=== PATIENT | female | born 1980 | race Caucasian/White ===

== ENCOUNTER 2022-09-21 07:10 | Emergency (ER) | payer BC, SELFPAY ==
[2022-09-21 07:21] VITALS: BP 132/88; PULSE 78; RESP 20; TEMP 36.8; O2SAT 98
--- NOTE | 2022-09-21 07:36 | CRLHL7_ITS ---
For Patients: As a result of the Cures Act, medical imaging exams and procedure reports are released immediately into your electronic medical record. You may view this report before your referring provider. If you have questions, please contact your health care provider. Indication: Pain, rolled ankle last night Comparison: None available. Technique: AP, lateral, and oblique views right foot were obtained. Findings: There is no displaced fracture or dislocation. There is mild prominence of the interspace between the bases of the 2nd and 3rd metatarsals which could represent ligamentous injury of the midfoot. There is mild dorsal soft tissue swelling. Impression: Mild prominence of the interspace between the 2nd and 3rd metatarsals seen best on the oblique view. Finding could represent minimal ligamentous strain. Correlate with history of clinical symptoms and consider MR for improved characterization of soft tissue structures. No displaced fracture. Mild dorsal soft tissue swelling. Dictated by Caleb Gaitan MD @ 09/21/2022 8:24:07 AM (Electronically Signed)
--- NOTE | 2022-09-21 07:36 | CRLHL7_ITS ---
For Patients: As a result of the Cures Act, medical imaging exams and procedure reports are released immediately into your electronic medical record. You may view this report before your referring provider. If you have questions, please contact your health care provider. Indication: Rolled right ankle last night Comparison: None available. Technique: AP, lateral, and oblique views right foot were obtained. Findings: There is no displaced fracture or dislocation. The joint spaces are grossly preserved. There is mild dorsal soft tissue swelling. Impression: Mild dorsal soft tissue swelling without evidence of displaced fracture. Dictated by Caleb Gaitan MD @ 09/21/2022 8:11:38 AM (Electronically Signed)
--- NOTE | 2022-09-21 07:59 | ED.GENADULT ---
HPI - General Adult General Date Seen: 09/21/22 Chief complaint: Extremity Pain/Injury, Lower Stated complaint: rolled ankle Time Seen by Provider: 09/21/22 07:34 Source: patient Mode of arrival: ambulatory Limitations: no limitations History of Present Illness HPI narrative: Patient is a 42-year-old woman who presents for evaluation of her right ankle and foot. She rolled her ankle last night, continues to have pain today and so presents for evaluation. There is a little bit of swelling noted in the ankle. She primarily complains of pain in the lateral foot at this time. She is ambulatory although she says she is limping. Denies other injuries or complaints. Has some tingling in her lateral foot. No numbness or loss of function. Related Data Previous Rx's Medication Instructions Recorded risankizumab-rzaa 150 mg/mL 150 mg subcut Q12W #1 mL 03/30/22 subcutaneous pen injector (Skyrizi) Allergies Allergy/AdvReac Type Severity Reaction Status Date / Time NKA Allergy Unknown Uncoded 09/21/22 07:27 Review of Systems Status of ROS: Reports: 6 or more systems reviewed and unremarkable except as noted in History and below [facility] Medical History Psoriasis Psoriasis and similar disorder Social History Smoking Status: Never smoker Do you use any of these nicotine containing products: None How often do you have a drink containing alcohol: never How often do you have six or more drinks on one occasion: Never AUDIT-C Alcohol total score: 0 Non-prescribed substance use: denies use service: No Exam Narrative: Exam Narrative: Vital signs reviewed In general, an alert, nontoxic woman. Extremities: Examination of the right lower extremity shows mild swelling in the ankle, no bruising, deformity, erythema or warmth. Pulses intact. Distal CMS is normal. She has tenderness primarily over the lateral foot over the 4th metatarsal. She does not have any tenderness over the 5th metatarsal. She has minimal tenderness over the lateral malleolus. No tenderness over the medial malleolus or Achilles. No tenderness over the proximal lower leg. Skin: Warm and dry, well perfused. No abrasions or lacerations. Const: Vital Signs, click to edit/add: Vital Signs - 24 hr 09/21/22 07:21 Temperature 98.3 F Pulse Rate [Left P ulse Oximeter] 78 Respiratory Rate 20 Blood Pressure [Le ft Upper Arm] 132/88 Pulse Oximetry 98 Oxygen Delivery Me thod Room Air Documenting provider has reviewed patient's vital signs: yes Course Course Hospital Course: Patient had x-rays of her right foot and right ankle, which by my review did not show any evidence of acute bony injury. Final radiology read a both x-rays is negative. Will go ahead and try a Gel splint verses a hard sole shoe here and see which 1 is more helpful for her. Otherwise, ice, elevation, ibuprofen or Tylenol as needed. Discussed that x-rays are negative but are not perfect, she is not improving in all over the next week or so should be seen again for recheck. Vital Signs Vital signs: Initial Vital Signs Temperature 98.3 F 09/21/22 07:21 Temperature Source Temporal Artery Scan 09/21/22 07:21 Pulse Rate 78 09/21/22 07:21 Pulse Rhythm 09/21/22 07:21 Pulse Strength 0+ Absent 09/21/22 07:21 Respiratory Rate 20 09/21/22 07:21 Blood Pressure 132/88 09/21/22 07:21 Blood Pressure Mean 102 09/21/22 07:21 Blood Pressure Position Supine 09/21/22 07:21 Pulse Oximetry 98 09/21/22 07:21 Oxygen Delivery Method 09/21/22 07:21 Vital Signs Temperature 98.3 F 09/21/22 07:21 Pulse Rate 78 09/21/22 07:21 Respiratory Rate 20 09/21/22 07:21 Blood Pressure 132/88 09/21/22 07:21 Pulse Oximetry 98 09/21/22 07:21 Oxygen Delivery Method 09/21/22 07:21 Temperature 98.3 F 09/21/22 07:21 Pulse Rate 78 09/21/22 07:21 Respiratory Rate 20 09/21/22 07:21 Blood Pressure 132/88 09/21/22 07:21 Pulse Oximetry 98 09/21/22 07:21 Oxygen Delivery Method 09/21/22 07:21 Discharge Plan Discharge Clinical Impression: Right foot sprain Patient Disposition: Home, Self-Care Condition: Stable Instructions: Foot Sprain (ED) Additional Instructions: Splint as needed for the next week. Ibuprofen or Tylenol, ice, elevation. Recheck if not improving over the next week or so. Prescriptions: No Action Skyrizi 150 mg/mL pen injector 150 mg subcut Q12W Qty: 1 0RF Follow Up/Referrals: Provider,Not a Local [Primary Care Provider] - Stand Alone Forms: Snap Trendsth Info Instructions
== END 2022-09-21 08:40 | disposition home or self-care (01) ==
PROVIDERS: Emergency Provider Emergency Medicine
DX: S93.401A Sprain of unspecified ligament of right ankle, initial encounter (principal)
CPT/HCPCS: 73610; 73630; 99284

== ENCOUNTER 2025-02-12 21:55 | Emergency (ER) | payer BC, SELFPAY ==
--- OUTSIDE RECORDS SUMMARY | 2025-02-12 21:57 | XMS_ITS | Continuity of Care Document ---
Author Organization [place] [facility] Address [address] [place] [address] Assessment Encounter Date Assessment Date Assessment LastModified by Organization Details LastModified Time 12/31/2024 12/31/2024 ASSESSMENT: Patient is a good candidate for conservative care and the prognosis is for a favorable outcome that achieves the patients' goals. We discussed etiology, activity modifications, home care, and other treatment options. Initially, it is recommended that the patient receive in-office treatment 1 times per week for 8 weeks at which time a re-evaluation will be performed to determine an appropriate change in plan. Initially, treatment will focus on joint manipulation to restore range of motion and reduce pain. We will slowly progress to therapeutic exercises and activities to improve function, strength, and stability may also be used as warranted. If the patient is not responding as expected, more invasive procedures will be discussed along with a referral. All considerations above were discussed with the patient and questions answered to satisfaction. If the patient should have any additional questions, or should the condition evolve or worsen, the patient should not hesitate to contact our office. [email or web address] Not available 12/31/2024 19:42:12 Plan of Treatment Reminders Order Date Submit Date Provider Last Modified By Organization Details Last Modified Time Details Appointments None record ed. Lab None record ed. Referral None record ed. Procedures None record ed. Surgeries None record ed. Imaging None record ed. Medication Orders None record ed. Patient TargetsNo targets recorded. Patient InstructionsNo instructions recorded. Reason for Referral None Reported. Problems Name Problem SNOMED Code Status Onset Date Resolution Date Notes Provider Name and Address Organization Details Recorded Time Neck pain 44429578 Active 2023 Not Available [facility] 4 10:21:41 Cervical radiculopa thy 93868131 Active 2023 Avery Hidalgo [place] [address], [place], [address] , [place] [facility] 4 00:13:19 Degenerati on of cervical interverte bral disc 86639603 Active 2023 Avery Hidalgo [place] [address], [place], [address] , [place] [facility] 4 00:13:19 Thoracic segmental dysfunctio n 862141942 Active 2023 Avery Hidalgo [place] [address], [place], [address] , [place] [facility] 4 00:13:19 Cervical segmental dysfunctio n 370307419 Active 2023 Avery Hidalgo [place] [address], [place], [address] , [place] [facility] 4 00:13:19 Muscle spasm of cervical muscle of neck 169286708087 Active 2023 Avery Hidalgo [place] [address], [place], [address] , [place] [facility] 4 00:13:19 Myofascial pain syndrome of neck 576025906 Active 2024 Avery Rocky [place] [address], [place], [address] , [place] [facility] 5 18:00:43 Somatic dysfunctio n of pelvic region 224670967 Active 2024 Avery Rocky [place] [address], [place], [address] , [place] [facility] 5 18:00:52 Lumbar segmental dysfunctio n 012130926 Active 2024 Alexandre Harris, [place] [address], [place], [address] , [place] [facility] 5 18:51:57 Lesion of lumbar spine 065430358 Active 2024 Alexandre Harris [place] [address], [place], [address] , [facility] 18:51:57 Somatic dysfunctio n of sacral spine 821133771 Active 2024 Alexandre Harris [place] [address], [place], [address] , [facility] 19:40:35 Low back pain 680608483 Active 2024 Alexandre Harris [place] [address], [place], [address] , [facility] 19:40:35 Somatic dysfunctio n of lower limb 734771573 Active 2024 Alexandre Harris [place] [address], [place], [address] , [facility] 19:42:12 Problem Notes None recorded. Procedures Surgical History Date Name Laterality Status Provider Name and Address Organization Details Recorded Time 01/31/20 25 98682: Spinal manipulation, 3 to 4 regions completed Avery Santiago DC [address], [place], [address], [facility] 01/30/2025 16:31:07 01/27/20 25 39400: Spinal manipulation, 3 to 4 regions completed Avery Santiago DC [address] [place] [address], [place], [address], [facility] 01/26/2025 18:04:12 01/01/20 25 41395: Spinal manipulation, 3 to 4 regions completed Alexandre Maxwellcompa Harris DC [address], [place], [address], [facility] 12/31/2024 19:42:30 12/27/19 25 59050: Spinal manipulation, 3 to 4 regions completed Avery Santiago DC [address], [place], [address], [facility] 12/26/2024 18:08:40 12/24/19 25 92685: Spinal manipulation, 3 to 4 regions completed Alexandre Harris DC [address], [place], [address], [facility] 12/23/2024 18:46:26 12/13/19 25 89225: Spinal manipulation, 3 to 4 regions completed Alexandre Harris DC [address], [place], [address], [facility] 12/16/2024 18:50:08 11/22/19 25 32494: Spinal manipulation, 3 to 4 regions completed Avery Santiago DC [address], [place], [address], [facility] 11/21/2024 22:00:11 10/24/19 25 08196: Spinal manipulation, 3 to 4 regions completed Alexandre Harris DC [address], [place], [address], [facility] 10/23/2024 19:41:42 10/24/19 25 71514: Non-spinal manipulation completed Alexandre Harris DC [address], [place], [address], [facility] 10/23/2024 19:41:54 09/27/19 25 99442: Spinal manipulation, 3 to 4 regions completed Avery Santiago DC [address], [place], [address], [facility] 09/26/2024 19:17:52 08/11/19 25 24086: Spinal manipulation, 3 to 4 regions completed Alexandre Harris DC [address], [place], [address], [facility] 08/11/2024 18:53:02 08/01/19 25 25454: Spinal manipulation, 3 to 4 regions completed Avery Santiago DC [address], [place], [address], [facility] 08/01/2024 15:40:14 07/25/19 00254: Spinal manipulation, 3 to 4 regions completed Avery Hidalgo [place], [place] [address], [place], [address], [facility] 07/25/2024 17:58:55 06/27/20 66127: Spinal manipulation, 3 to 4 regions completed Avery Hidalgo Colleen[place], [place] [address], [place], [address], [facility] 06/28/2024 00:16:24 06/27/20 99901: Mechanical Traction completed Avery Hidalgo Col[place], [place] [address], [place], [address], [facility] 06/28/2024 00:13:17 06/27/20 86834: New patient E/M completed Avery Hidalgo Col[place], [place] [address], [place], [address], [facility] 06/28/2024 00:13:17 06/27/20 24 01211: Established patient E/M completed Avery Hidalgo Colleen[place], [place] [address], [place], [address], [facility] 06/28/2024 00:13:17 06/27/20 53901: Therapeutic activities (1:1) completed Avery Hidalgo Brennan, [place] [address], [place], [address], [facility] 06/28/2024 00:13:17 06/27/20 46993: Therapeutic Exercise completed Avery Rocky Brennan, [place] [address], [place], [address], [facility] 06/28/2024 00:13:17 06/27/20 24 78201: Massage completed Avery Rocky Colleen[place], [place] [address], [place], [address], [facility] 06/28/2024 00:13:17 06/27/20 77200: Manual Therapy completed Averyguillermina Maciasm, [place] [address], [place], [address], [facility] 06/28/2024 00:13:17 06/27/20 24 99292: Electrical Stimulation; Attended completed Avery Santiago DC [address], [place], [address], [facility] 06/28/2024 00:13:17 06/27/20 24 55318: Spinal manipulation, 1 to 2 regions completed Avery Santiago DC [address], [place], [address], [facility] 06/28/2024 00:13:17 Imaging Results None recorded. Procedure Notes None recorded. Medical Equipment None Reported. Medications Name Sig Start Date Stop Date Status Note LastModified by Organization Details LastModified Time amoxicillin 500 mg tablet TAKE 1 TABLET BY MOUTH THREE TIMES DAILY active Not Available Not Available No t Available Vitals None Recorded Social History None recorded. Functional Status None recorded. Mental Status None recorded. Family History Nothing Reported. Medical History No medical history recorded. Gynecological HistoryNo gynecological history recorded. Obstetrics History GPAL:G 0 P 0 0 0 0 Past Encounters Encounter ID Performer Location Encounter Start Date Encounter Closed Date Diagnosis/Indication Diagnosis SNOMED-CT Code Diagnosis ICD10 Code Diagnosis Note [id number] Avery Santiago DC [facility] [address] [place] [address] 12/12/2024 16:29:10 12/23/2024 17:15:26 Lesion of lumbar spine 369281405 M99.01 Neck pain 79770067 M54.2 Thoracic s egmental dysfunction 576595854 M99.02 Lumbar seg mental dysfunction 358497768 M99.03 Cervical s egmental dysfunction 762083619 M99.01 [id number] Alexandre Harris DC [facility] [address] [place] [address] 12/23/2024 17:49:34 12/25/2024 10:48:39 Lesion of lumbar spine 997738959 M99.01 Neck pain 60941420 M54.2 Thoracic s egmental dysfunction 387190069 M99.02 Lumbar seg mental dysfunction 680647962 M99.03 Cervical s egmental dysfunction 648167894 M99.01 [id number] Avery Rocky ERIK Santiago [facility] [place] [address] [facility] [place] [address] 12/26/2024 17:45:35 12/26/2024 18:14:04 Lesion of lumbar spine 925179931 M99.01 Neck pain 11357895 M54.2 Thoracic s egmental dysfunction 909363359 M99.02 Lumbar seg mental dysfunction 898610430 M99.03 Cervical s egmental dysfunction 114075726 M99.01 [id number] [facility] [place] [address] [facility] [place] [address] 12/31/2024 18:14:48 01/06/2025 17:32:07 Lesion of lumbar spine 971307167 M99.01 Neck pain 52848126 M54.2 Thoracic s egmental dysfunction 421634132 M99.02 Lumbar seg mental dysfunction 306928463 M99.03 Cervical s egmental dysfunction 802602924 M99.01 Health Concerns Section Related Observation LastModified by Organization Detai ls LastModified Time None Recorded Concern Status LastModified by Organization Details LastModified Time None Recorded Payers Encounter Date Sequence Insurance Name Policy Number Policy Barrett Covered Member ID Barrett Member ID Guarantor Name 12/31/2024 1 [place] Chris Medina [id number] Lynn Medina Notes Date Note Type Note Provider Name and Address Organization Details Recorded Time 12/31/2024 text/html HPI - Cervical SpineReported bypatient.Location: left Quality:aching Severity:moderate Duration:2 weeks Timing:gradual Alleviating Factors:ice Aggravating Factors:sitting Associated Symptoms:no numbness/tingling Alexandre Harris DC [address], [place], [address], [facility] 12/31/2024 19:43:03 OBGyn Episode No OBEpisode recorded.
--- OUTSIDE RECORDS SUMMARY | 2025-02-12 21:57 | XMS_ITS | Patient Health Record ---
Author Organization [facility] Address [address] [place] [address] Support Name Relationship Address Phone Chris Medina [place] [address] Jacquie Medina Guarantor Unknown [phone] Reason For Referral No Information Immunizations Vaccine Route Administration Date Status Comme nts Influenza (whole) IM Intramuscular 04/16/2020 Administered Plan Of Treatment No Information Insurance Providers Payer Name Payer Address Payer Phone Subscriber Number Group Number Insured Name Patient Relationship to Insured Coverage Start Date Coverage End Date [facility] () [address], [address] [place] [address] Jacquie Medina Self - patient is the insured [facility] [id number] [address] [place], [place] [id number] Jacquie Medina Self - patient is the insured Medical (General) History Surgical History Surgery Date(Month/Year) 02/24/02 09/22/04 Hospitalization History Reason Date(Month/Year) 02/24/02 09/22/04
--- OUTSIDE RECORDS SUMMARY | 2025-02-12 21:57 | XMS_ITS | Continuity of Care Document ---
Author Organization [place] [facility] [place] [facility] Address [address] [facility] [address] [place] [address] Assessment Encounter Date Assessment Date Assessment LastModified by Organization Details LastModified Time 01/26/2025 01/26/2025 ASSESSMENT: Patient is a good candidate for [...] should not hesitate to contact our office. ecram Not available 01/26/2025 18:04:12 Plan of Treatment Reminders Order Date Submit [...] Address Organization Details Recorded Time Neck pain 21007398 Active 2023 Not Available [facility] 4 10:21:41 Cervical radiculopa thy 56199070 Active 2023 Avery Hidalgo Colleenrenee ERIK [address] [facility], [place], [address] , [facility] 4 00:13:19 Degenerati on of cervical interverte bral disc 63408079 Active 2023 Avery Hidalgo [place] [address] [facility], [place], [address] , [place] [facility] 4 00:13:19 Thoracic segmental dysfunctio n 676314040 Active 2023 Avery Hidalgo [place] [address] [facility], [place], [address] , [place] [facility] 4 00:13:19 Cervical segmental dysfunctio n 938795270 Active 2023 Avery Hidalgo [place] [address] [facility], [place], [address] , [place] [facility] 4 00:13:19 Muscle spasm of cervical muscle of neck 621516944115 Active 2023 Avery Hidalgo [place] [address] [facility], [place], [address] , [place] [facility] 4 00:13:19 Myofascial pain syndrome of neck 011566245 Active 2024 Avery Hidalgo ColleenreneeERIK [address] [facility], [place], [address] , [place] [facility] 5 18:00:43 Somatic dysfunctio n of pelvic region 205541076 Active 2024 Avery Rocky [place] [address] [facility], [place], [address] , [place] [facility] 5 18:00:52 Lumbar segmental dysfunctio n 044306831 Active 2024 Alexandre Harris, [place] [address] [facility], [place], [address] , [place] [facility] 5 18:51:57 Lesion of lumbar spine 442610691 Active 2024 Alexandre Harris [place] [address] [facility], [place], [address] , [facility] 18:51:57 Somatic dysfunctio n of sacral spine 752301245 Active 2024 Alexandre Harris [place] [address] [facility], [place], [address] , [facility] 19:40:35 Low back pain 647059331 Active 2024 Alexandre Harris [place] [address] [facility], [place], [address] , [facility] 19:40:35 Somatic dysfunctio n of lower limb 040821095 Active 2024 [facility] Stepan Harris [place] [address] [facility], [place], [address] , [facility] 19:42:12 Problem Notes None recorded. Procedures Surgical History Date Name Laterality Status Provider Name and Address Organization Details Recorded Time 01/31/20 62882: Spinal manipulation, 3 to 4 regions completed Avery Santiago DC [address] [place] [address], [place], [address], [facility] 01/30/2025 16:31:07 01/27/20 25 11550: Spinal manipulation, 3 to 4 regions completed Avery Santiago DC [address] [place] [address], [place], [address], [facility] 01/26/2025 18:04:12 01/01/20 25 46120: Spinal manipulation, 3 to 4 regions completed Alexandre Ying Kimberly [place] [address] [facility], [place], [address], [facility] 12/31/2024 19:42:30 12/27/19 25 35024: Spinal manipulation, 3 to 4 regions completed Avery Santiago DC [address] [facility], [place], [address], [facility] 12/26/2024 18:08:40 12/24/19 25 07281: Spinal manipulation, 3 to 4 regions completed Alexandre Harris DC [address] [facility], [place], [address], [facility] 12/23/2024 18:46:26 12/13/19 25 81911: Spinal manipulation, 3 to 4 regions completed Alexandre Harris DC [address] [facility], [place], [address], [facility] 12/16/2024 18:50:08 11/22/19 79086: Spinal manipulation, 3 to 4 regions completed Avery Santiago DC [address] [facility], [place], [address], [facility] 11/21/2024 22:00:11 10/24/19 83482: Spinal manipulation, 3 to 4 regions completed Alexandre Harris DC [address] [facility], [place], [address], [facility] 10/23/2024 19:41:42 10/24/19 25 48391: Non-spinal manipulation completed Alexandre Harris DC [address] [facility], [place], [address], [facility] 10/23/2024 19:41:54 09/27/19 25 30957: Spinal manipulation, 3 to 4 regions completed Avery Santiago DC [address] [facility], [place], [address], [facility] 09/26/2024 19:17:52 08/11/19 25 05244: Spinal manipulation, 3 to 4 regions completed Alexandre Harris DC [address] [facility], [place], [address], [facility] 08/11/2024 18:53:02 08/01/19 25 63468: Spinal manipulation, 3 to 4 regions completed Avery Santiago DC [address] [facility], [place], [address], [facility] 08/01/2024 15:40:14 07/25/19 98754: Spinal manipulation, 3 to 4 regions completed Avery Maciasm, DC [address] [facility], [place], [address], [facility] 07/25/2024 17:58:55 06/27/20 65025: Spinal manipulation, 3 to 4 regions completed Averyguillermina Maciasm, DC [address] [facility], [place], [address], [facility] 06/28/2024 00:16:24 06/27/20 55390: Mechanical Traction completed Averyguillermina Maciasm, DC [address] [facility], [place], [address], [facility] 06/28/2024 00:13:17 06/27/20 65643: New patient E/M completed Averyguillermina Maciasm, DC [address] [facility], [place], [address], [facility] 06/28/2024 00:13:17 06/27/20 24 16314: Established patient E/M completed Averyguillermina Santiago, DC [address] [facility], [place], [address], [facility] 06/28/2024 00:13:17 06/27/20 24 84526: Therapeutic activities (1:1) completed Averyguillermina Santiago, DC [address] [facility], [place], [address], [facility] 06/28/2024 00:13:17 06/27/20 24 20284: Therapeutic Exercise completed Avery Santiago, DC [address] [facility], [place], [address], [facility] 06/28/2024 00:13:17 06/27/20 24 23220: Massage completed Avery Santiago, DC [address] [facility], [place], [address], [facility] 06/28/2024 00:13:17 06/27/20 59274: Manual Therapy completed Avery Santiago, DC [address] [facility], [place], [address], [facility] 06/28/2024 00:13:17 06/27/20 24 35527: Electrical Stimulation; Attended completed Avery Santiago DC [address] [facility], [place], [address], [facility] 06/28/2024 00:13:17 06/27/20 24 22418: Spinal manipulation, 1 to 2 regions completed Avery Santiago DC [address] [facility], [place], [address], [facility] 06/28/2024 00:13:17 Imaging Results None recorded. Procedure [...] SNOMED-CT Code Diagnosis ICD10 Code Diagnosis Note [id number] Alexandre Stepan Harris DC [facility] [address] [place] [address] 12/31/2024 18:14:48 01/06/2025 17:32:07 Lesion of lumbar spine 821123573 M99.01 Neck pain 22045055 M54.2 Thoracic s egmental dysfunction 414467590 M99.02 Lumbar seg mental dysfunction 402052539 M99.03 Cervical s egmental dysfunction 874075773 M99.01 [id number] Avery Santiago DC [facility] [address] [facility] [place] [address] 01/26/2025 17:51:56 01/28/2025 14:41:33 Lesion of lumbar spine 488517356 M99.01 Neck pain 48605532 M54.2 Thoracic s egmental dysfunction 643030555 M99.02 Lumbar seg mental dysfunction 851121615 M99.03 Cervical s egmental dysfunction 917427729 M99.01 Health Concerns Section Related Observation LastModified by Organization Detai ls LastModified Time None Recorded Concern Status LastModified by Organization Details LastModified Time None Recorded Payers Encounter Date Sequence Insurance Name Policy Number Policy Barrett Covered Member ID Barrett Member ID Guarantor Name 01/26/2025 1 [place] Chris Medina [id number] Lynn Carol Notes Date Note Type Note Provider Name and Address Organization Details Recorded Time 01/26/2025 text/html HPI - Cervical SpineReported bypatient.Location: left Quality:aching Severity:moderate Duration:2 weeks Timing:gradual Alleviating Factors:ice Aggravating Factors:sitting Associated Symptoms:no numbness/tingling Avery Santiago DC [address] [facility], [place], [address], [facility] - [facility] 01/26/2025 18:04:47 OBGyn Episode No OBEpisode recorded.
--- OUTSIDE RECORDS SUMMARY | 2025-02-12 21:57 | XMS_ITS | Continuity of Care Document ---
Author Organization [place] [facility] [place] [facility] Address [address] [facility] [address] [place] [address] Assessment Encounter Date Assessment Date Assessment LastModified by Organization Details LastModified Time 01/30/2025 01/30/2025 ASSESSMENT: Patient is a good candidate for [...] to contact our office. ecram Not available 01/30/2025 16:31:07 Plan of Treatment Reminders Order Date Submit [...] Address Organization Details Recorded Time Neck pain 71194865 Active 2023 Not Available [facility] 4 10:21:41 Cervical radiculopa thy 42873487 Active 2023 Avery Hidalgo Colleenrenee ERIK [address] [facility], [place], [address] , [facility] 4 00:13:19 Degenerati on of cervical interverte bral disc 64101269 Active 2023 Avery Hidalgo [place] [address] [facility], [place], [address] , [place] [facility] 4 00:13:19 Thoracic segmental dysfunctio n 903622967 Active 2023 Avery Hidalgo [place] [address] [facility], [place], [address] , [place] [facility] 4 00:13:19 Cervical segmental dysfunctio n 995702622 Active 2023 Avery Hidalgo [place] [address] [facility], [place], [address] , [place] [facility] 4 00:13:19 Muscle spasm of cervical muscle of neck 269295317062 Active 2023 Avery Hidalgo [place] [address] [facility], [place], [address] , [place] [facility] 4 00:13:19 Myofascial pain syndrome of neck 703070647 Active 2024 Avery Hidalgo ColleenreneeERIK [address] [facility], [place], [address] , [place] [facility] 5 18:00:43 Somatic dysfunctio n of pelvic region 539480252 Active 2024 Avery Rocky [place] [address] [facility], [place], [address] , [place] [facility] 5 18:00:52 Lumbar segmental dysfunctio n 374189397 Active 2024 Alexandre Harris, [place] [address] [facility], [place], [address] , [place] [facility] 5 18:51:57 Lesion of lumbar spine 826563943 Active 2024 Alexandre Harris [place] [address] [facility], [place], [address] , [facility] 18:51:57 Somatic dysfunctio n of sacral spine 332161279 Active 2024 Alexandre Harris [place] [address] [facility], [place], [address] , [facility] 19:40:35 Low back pain 889550824 Active 2024 Alexandre Harris [place] [address] [facility], [place], [address] , [facility] 19:40:35 Somatic dysfunctio n of lower limb 968804637 Active 2024 [facility] Stepan Harris [place] [address] [facility], [place], [address] , [facility] 19:42:12 Problem Notes None recorded. Procedures Surgical History Date Name Laterality Status Provider Name and Address Organization Details Recorded Time 01/31/20 94577: Spinal manipulation, 3 to 4 regions completed Avery Santiago DC [address] [place] [address], [place], [address], [facility] 01/30/2025 16:31:07 01/27/20 25 43155: Spinal manipulation, 3 to 4 regions completed Avery Santiago DC [address] [place] [address], [place], [address], [facility] 01/26/2025 18:04:12 01/01/20 25 11473: Spinal manipulation, 3 to 4 regions completed Alexandre Ying Kimber[place] [address] [facility], [place], [address], [facility] 12/31/2024 19:42:30 12/27/19 25 86555: Spinal manipulation, 3 to 4 regions completed Avery Santiago DC [address] [facility], [place], [address], [facility] 12/26/2024 18:08:40 12/24/19 25 89081: Spinal manipulation, 3 to 4 regions completed Alexandre Harris DC [address] [facility], [place], [address], [facility] 12/23/2024 18:46:26 12/13/19 25 11075: Spinal manipulation, 3 to 4 regions completed Alexandre Harrsi DC [address] [facility], [place], [address], [facility] 12/16/2024 18:50:08 11/22/19 68442: Spinal manipulation, 3 to 4 regions completed Avery Santiago DC [address] [facility], [place], [address], [facility] 11/21/2024 22:00:11 10/24/19 11816: Spinal manipulation, 3 to 4 regions completed Alexandre Harris DC [address] [facility], [place], [address], [facility] 10/23/2024 19:41:42 10/24/19 25 13071: Non-spinal manipulation completed Alexandre Harris DC [address] [facility], [place], [address], [facility] 10/23/2024 19:41:54 09/27/19 25 62696: Spinal manipulation, 3 to 4 regions completed Avery Santiago DC [address] [facility], [place], [address], [facility] 09/26/2024 19:17:52 08/11/19 25 15613: Spinal manipulation, 3 to 4 regions completed Alexandre Harris DC [address] [facility], [place], [address], [facility] 08/11/2024 18:53:02 08/01/19 25 78227: Spinal manipulation, 3 to 4 regions completed Avery Santiago DC [address] [facility], [place], [address], [facility] 08/01/2024 15:40:14 07/25/19 39679: Spinal manipulation, 3 to 4 regions completed Avery Maciasm, DC [address] [facility], [place], [address], [facility] 07/25/2024 17:58:55 06/27/20 23595: Spinal manipulation, 3 to 4 regions completed Averyguillermina Maciasm, DC [address] [facility], [place], [address], [facility] 06/28/2024 00:16:24 06/27/20 27620: Mechanical Traction completed Averyguillermina Maciasm, DC [address] [facility], [place], [address], [facility] 06/28/2024 00:13:17 06/27/20 24238: New patient E/M completed Averyguillermina Maciasm, DC [address] [facility], [place], [address], [facility] 06/28/2024 00:13:17 06/27/20 24 18509: Established patient E/M completed Averyguillermina Santiago, DC [address] [facility], [place], [address], [facility] 06/28/2024 00:13:17 06/27/20 24 38227: Therapeutic activities (1:1) completed Averyguillermina Santiago, DC [address] [facility], [place], [address], [facility] 06/28/2024 00:13:17 06/27/20 24 15963: Therapeutic Exercise completed Avery Santiago, DC [address] [facility], [place], [address], [facility] 06/28/2024 00:13:17 06/27/20 24 54144: Massage completed Avery Santiago, DC [address] [facility], [place], [address], [facility] 06/28/2024 00:13:17 06/27/20 13962: Manual Therapy completed Avery Santiago, DC [address] [facility], [place], [address], [facility] 06/28/2024 00:13:17 06/27/20 24 68473: Electrical Stimulation; Attended completed Avery Santiago DC [address] [facility], [place], [address], [facility] 06/28/2024 00:13:17 06/27/20 24 67941: Spinal manipulation, 1 to 2 regions completed Avery Santiago DC [address] [facility], [place], [address], [facility] 06/28/2024 00:13:17 Imaging Results None recorded. [...] SNOMED-CT Code Diagnosis ICD10 Code Diagnosis Note [id number] Alexandre Stepan Harris DC [facility] [address] [place] [address] 12/31/2024 18:14:48 01/06/2025 17:32:07 Lesion of lumbar spine 746604163 M99.01 Neck pain 67598953 M54.2 Thoracic s egmental dysfunction 753807386 M99.02 Lumbar seg mental dysfunction 134265927 M99.03 Cervical s egmental dysfunction 857966137 M99.01 [id number] Avery Santiago DC [facility] [address] [facility] [place] [address] 01/26/2025 17:51:56 01/28/2025 14:41:33 Lesion of lumbar spine 400348983 M99.01 Neck pain 79952960 M54.2 Thoracic s egmental dysfunction 728419732 M99.02 Lumbar seg mental dysfunction 988963409 M99.03 Cervical s egmental dysfunction 403736223 M99.01 [id number] Avery Santiago DC [facility] [address] [facility] [place] [address] 01/30/2025 16:29:49 01/30/2025 16:34:01 Lesion of lumbar spine 992447073 M99.01 Neck pain 70312605 M54.2 Thoracic s egmental dysfunction 836408555 M99.02 Lumbar seg mental dysfunction 612549828 M99.03 Cervical s egmental dysfunction 285425187 M99.01 Health Concerns Section Related Observation LastModified by Organization Detai ls LastModified Time None Recorded Concern Status LastModified by Organization Details LastModified Time None Recorded Payers Encounter Date Sequence Insurance Name Policy Number Policy Barrett Covered Member ID Barrett Member ID Guarantor Name 01/30/2025 1 [place] Chris Medina [id number] Lynn Medina Notes Date Note Type Note Provider Name and Address Organization Details Recorded Time 01/30/2025 text/html HPI - Cervical SpineReported bypatient.Location: left Quality:aching Severity:moderate Duration:2 weeks Timing:gradual Alleviating Factors:ice Aggravating Factors:sitting Associated Symptoms:no numbness/tingling Avery Santiago DC [address] [facility], [place], [address], [facility] - [facility] 01/30/2025 16:32:00 OBGyn Episode No OBEpisode recorded.
--- OUTSIDE RECORDS SUMMARY | 2025-02-12 21:58 | XMS_ITS | Clinical Summary ---
Author Organization [facility] Address [address] [place] [id number] Care Team Providers Care Phys Asst Name Role Phone Pcp, No Primary Care Provider Unavailabl e Allergies No known active allergies Medications Skyrizi 150 mg/mL syrg 01/17/20 22 Active acetaminophen (TYLENOL) 325 mg tabletIndication s:Abnormal uterine bleeding (AUB) Take 1-2 Tablets (325-650 mg) by mouth every 4 hours if needed for Pain. Max acetaminophen dose: 4000mg in 24 hrs. 100 Tablet 08/11/19 23 Active ibuprofen (IBU) 600 mg tabletIndication s:Abnormal uterine bleeding (AUB) Take 1 Tablet (600 mg) by mouth every 6 hours if needed for Pain. Maximum of 3200 mg in 24 hours. 0 08/11/19 23 Active docusate (Colace) 100 mg capsuleIndicatio ns:Abnormal uterine bleeding (AUB) Take 1 Capsule (100 mg) by mouth once daily. 100 Capsule 08/11/19 Active Additional Information Patient not taking.Reported on 02/11/2025 metroNIDAZOLE (FLAGYL) 500 mg tabletIndication s:Vaginal discharge Take 1 Tablet (500 mg) by mouth two times daily. 14 Tablet 10/06/19 Active Additional Information Patient not taking.Reported on 02/11/2025 risankizumab-rza a (Skyrizi) 75 mg/0.83 mL subcutaneous syringe Inject 1.66 mL (150 mg) subcutaneous. Every 4 months 1.66 mL 03/09/20 Active Active Problems Problem Noted Date Diagnosed Date Psoriasis 03/09/2023 Abnormal uterine bleeding (AUB) 08/09/2022 Encounters Date Type Department Care Team Description 02/12/2025 Telephone [facility] [address] [facility] [place] [address] Emy Spangler PA Questions 02/11/2025 8:00 AM CDT Ancillary Procedure [facility] [address] [facility] [address] Arrived 02/11/2025 7:20 AM CDT Office Visit [facility] [address] [facility] [address] Emy Spangler PA Fever 02/11/2025 Travel 02/11/2025 Nurse Triage [facility] Centralized Nurse Triage Pcp, Delfina Dizziness 01/19/2025 2:15 PM CDT Nurse/Clinic Staff Only [facility] [address] [facility] [address] Immunization/Injecti on (Hep B); Immunization/Injecti on 01/19/2025 Travel from Last 3 Months Immunizations Immunization Administration Dates Next Due Hepatitis B (Adult) 01/19/2025 Influenza, IIV3 (Age >=3 years) 05/21/2012,06/28,05/12/2004 Influenza, IIV4 (=>6mos) MDV 04/16/2020 Family History Medical History Relation Name Comments Cancer-breast No Family History Social History Tobacco Use Types Packs/Day Years Used Date Smoking Tobacco: Never Smokeless Tobacco: Never Tobacco Cessation:Counseling Given: Yes Alcohol Use Standard Drinks/Week Comments Yes 0 (1 standard drink = 0.6 oz pur e alcohol) 4 drinks per month on average PHQ-2 Answer Date Recorded PHQ-2 TOTAL SCORE 1 01/25/2022 Social Connections Answer Date Recorded Do you often feel lonely or isolated from those around you? 0 02/11/2025 Financial Resource Strain Answer Date R ecorded Difficulty of Paying Living Expenses 3 02/11/2025 Difficulty of Paying Living Expenses Not on file 02/11/2025 Food Insecurity Answer Date Recorded Do you worry your food will run out before you are able to buy more? 1 02/11/2025 Transportation Needs Answer Date Record ed Does lack of transportation keep you from medica l appointments? 1 02/11/2025 Does lack of transportation keep you from work, meetings or getting things that you need? 1 02/11/2025 Housing Stability Answer Date Recorded What is your housing situation today? 1 02/11/2025 Utilities Answer Date Recorded Do you have trouble paying f or utilities (for example, heat, electricity, water, phone)? 1 02/11/2025 Comments No Sex and Gender Information Value Date Recorded Sex Assigned at Not on file Legal Sex Female 5:40 AM SUPERVISOR RECORD [employer] Gender Identity Not on file Sexual Orientation Not on file Obstetrics History Para Term AB IAB SAB Ectopic Multiple Livin g Live Births 2 2 2 2 2 Date Outcome GA Total Labor Labor/2nd/3rd Weight Sex Type Anes PTL Radha A1 A5 Name Clin 2001 Term F C-Sec tion Living 2004 Term M C-Sec tion Living Comments Uncomplicated pregnancies/de liveries Last Filed Vital Signs Vital Sign Reading Time Taken Comments Blood Pressure 102/60 02/11/2025 7:34 AM CDT Pulse 105 02/11/2025 7:34 AM CDT Temperature 37.2 C (99 F) 02/11/2025 7:34 AM CDT Respiratory Rate 16 08/11/2022 3:30 PM SUPERVISOR REC[employer] Oxygen Saturation 96% 02/11/2025 7:34 AM CDT Inhaled Oxygen Concentration - - Weight 89.6 kg (197 lb 9.6 oz) 02/11/2025 7:34 A M CDT Height 165.1 cm (5' 5) 08/11/2022 8:11 AM SUPERVISOR REC[employer] Body Mass Index 32.88 08/11/2022 8:11 AM SUPERVISOR REC[employer] Plan of Treatment Upcoming Encounters Date Type Department Care Team (Late st Contact Info) Description 02/16/2025 2:15 PM CDT Nurse/Clinic Staff Only [facility] [address] [place] [address] Health Maintenance Due Date Last Done Comments COVID-19 vaccine series (#1) 1985 Tetanus booster 1991 HIV for age 15-65 1995 Hepatitis C screening for age 18-79 1998 Pap test for age 21-65 05/25/2009 6, 11/09/2004, 03/16/2004 BMI (ht and wt on same day) for age 18+ 01/25/2023 01/25/2022, 04/22/2020 Depression screening for age 12+ 01/25/2023 01/25/2022 Hepatitis B series for 19+ (2 of 3 - 19+ 3-dose series) 02/16/2025 01/19/2025 Influenza Vaccine (#1) 2025 0, 05/21/2012, 06/28/2005, Additional history exists Pneumococcal series for age 6-49 Aged Out No longer eligible based on patient's age to complete this topic Procedures Procedure Name Priority Date/Time Associated Diagnosis Comments XR CHEST 2 VIEWS PA AND LATERAL STAT 02/11/2025 8:08 AM CDT Influenza-like illness COVID/FLU/RSV PANEL Routine 02/11/2025 7 :34 AM CDT Fever, unspecified fever cause GYNECOLOGICAL PANEL Timed 05/25/2006 1 2:28 PM SUPERVISOR RECORD PRESS from Last 3 Months or Most Recently Relevant to Health Maintenance Results * XR CHEST 2 VIEWS PA AND LATERAL (02/11/2025 8:08 AM CDT) Anatomical Region Laterality Modality CHEST, THORAX, Lung, HEART Compu sal Radiography 02/11/2025 8:10 AM CDT Narrative 02/11/2025 8:10 AM CDT For Patients: As a result of the Cures Act, medical imaging exams and procedure reports are released immediately into your electronic medical record. You may view this report before your referring provider. If you have questions, please contact your health care provider. Indication: Influenza like illness Technique: Chest 2 views Comparison: None Findings/Impression: Cardiovascular and mediastinum: Heart size and vasculature are normal in caliber and appearance. Mediastinum is within normal limits. Lungs and pleural spaces: No pleural effusion or pneumothorax. No acute consolidation. Calcified granuloma right lung base. Bones and soft tissues: No significant findings. Dictated by Duane Little MD @ 02/11/2025 8:10:13 AM (Electronically Signed) Procedure Note Duane Little MD - 02/11/2025 For Patients: As a result of the Cures Act, medical imagingexams and procedure reports are released immediately into your electronicmedical record. You may view this report before your referring provider.If you have questions, please contact your health care provider. Indication: Influenza like illness Technique: Chest 2 views Comparison: None Findings/Impression: Cardiovascular and mediastinum: Heart size and vasculature are normal incaliber and appearance. Mediastinum is within normal limits. Lungs and pleural spaces: No pleural effusion or pneumothorax. No acuteconsolidation. Calcified granuloma right lung base. Bones and soft tissues: No significant findings. Dictated by Duane Little MD @ 02/11/2025 8:10:13 AM (Electronically Signed) Emy [facility] Final Result * COVID/FLU/RSV PANEL (02/11/2025 7:34 AM CDT) Pathologist [facility] COVID 19 [facility] MOLECULAR Negative Negative 02/11/2025 5:59 PM CDT [facility] INFLUENZA A PCR Negative 5 5:59 PM CDT [facility] INFLUENZA B PCR Negative 5 5:59 PM CDT [facility] Respiratory Syncytial Virus Negative 02/11/2025 5:59 PM CDT [facility] Swab NASOPHARYNGEAL SWAB / Unknown Non-Blood / Unknown 02/11/2025 7:34 AM CDT 02/11/2025 8:15 AM CDT Emy FULLER [facility] Final Result [facility] [address] [place] [address], * GYNECOLOGICAL PANEL (05/25/2006 12:28 PM SUPERVISOR RECORD PRESS) Pathologist [facility] CYTOLOGY CYTOPATHOLOGY REPORT [facility] [employer] Status: Final Report [id number] CLINICAL INFORMATION LMP : 05-17-06 Previous Pap Date : 11-09-04 Previous PAP Dx : Negative Hormone Usage : None Appearance of Cervix : Not given [place]/Bx done today : No HPV Request : Reflex HPV test if PAP Dx ASCUS SPECIMEN SOURCE : Cervical/vaginal ThinPrep Vial, screening SPECIMEN ADEQUACY : Satisfactory for evaluation Endocervical component present. INTERPRETATION/RES ULT: Negative for intraepithelial lesion or malignancy. Cytology 1st Screener : talon Signed by: talon This specimen was screened by the FDA approved ThinPrep Imaging System and manually reviewed. NOTE: The Pap test is a screening technique, not a diagnostic procedure. It is used primarily to screen for squamous cancers and precursor lesions. Published studies have shown that it is subject to both false negative and false positive results. The pap test should not be used as the sole means to diagnose or exclude pre-malignant and malignant lesions. COLLECTED: 05/25/06 ACCESSIONED: 05/28/06 SIGNED: 05/31/06 [facility] 05/25/2006 12:2 8 PM SUPERVISOR RECORD PRESS 05/28/2006 10:47 AM SUPERVISOR RECORD PRESS Ellie Coon NP PATHOLOGY/CYTOLOG Y Final Result [facility] INTERNAL ZIP [id number] [address] from Last 3 Months or Most Recently Relevant to Health Maintenance Insurance [facility] [employer] Member Subscriber Plan / Payer (Ef fective 2008-Present) Name:Jacquie Medina Relation to Subscriber:Self Name:Jacquie Medina Payer ID:Not on file Group ID:Not on file Type:Not on file [phone] Address: [address] [place] [address] [employer] Advance Directives * Full Code (Latest Code Status on File) Date Activated Date Inactivated Comments 08/11/2022 7:57 AM 08/11/2022 6:08 PM Question Answer Comments Code Status Discussion: Reviewed Preferences Care Teams Phys Asst Relationship Specialty Start Date End Date Pcp, No . PCP - General 01/18/22
--- OUTSIDE RECORDS SUMMARY | 2025-02-12 21:58 | XMS_ITS | Data Portability ---
Author Organization [place] [facility], [employer] - [facility] [facility] Address [address] [facility] [address] [place] [address] Assessment Encounter Date Assessment Date Assessment LastModified by Organization Details LastModified Time 12/23/2024 12/23/2024 ASSESSMENT: Patient is a good candidate for [...] should not hesitate to contact our office. Not available 12/23/2024 18:46:19 12/26/2024 12/26/2024 ASSESSMENT: Patient is a good candidate for [...] to contact our office. ecram Not available 12/26/2024 18:08:40 12/31/2024 12/31/2024 ASSESSMENT: Patient is a good [...] should not hesitate to contact our office. Not available 12/31/2024 19:42:12 01/26/2025 01/26/2025 ASSESSMENT: Patient is a good [...] our office. ecram Not available 01/26/2025 18:04:12 01/30/2025 01/30/2025 ASSESSMENT: Patient is a good [...] Address Organization Details Recorded Time Neck pain 71308167 Active 2023 Not Available [facility] 4 10:21:41 Cervical radiculopa thy 99434170 Active 2023 Avery Santiago DC [address] [facility], [place], [address] , [facility] 4 00:13:19 Degenerati on of cervical interverte bral disc 05940903 Active 2023 Avery Santiago DC [address] [facility], [place], [address] , [facility] hospital 4 00:13:19 Thoracic segmental dysfunctio n 143196163 Active 2023 Avery Santiago DC [address] [facility], [place], [address] , [facility] 4 00:13:19 Cervical segmental dysfunctio n 971231709 Active 2023 Avery Hidalgo ColleenreneeERIK [address] [facility], [place], [address] , [place] [facility] 4 00:13:19 Muscle spasm of cervical muscle of neck 635847970256 Active 2023 Avery Santiago DC [address] [facility], [place], [address] , [place] [facility] 4 00:13:19 Myofascial pain syndrome of neck 523825127 Active 2024 Avery Santiago DC [address] [facility], [place], [address] , [place] [facility] 5 18:00:43 Somatic dysfunctio n of pelvic region 215591397 Active 2024 Avery Santiago DC [address] [facility], [place], [address] , [facility] 5 18:00:52 Lumbar segmental dysfunctio n 699322888 Active 2024 Alexandre Ying Mehrdadrex MS [address] [facility], [place], [address] , [place] [facility] 5 18:51:57 Lesion of lumbar spine 496237160 Active 2024 Alexandre Ying Mehrdadrex MS [address] [facility], [place], [address] , [place] [facility] 5 18:51:57 Somatic dysfunctio n of sacral spine 740843035 Active 2024 Alexandre Roseserarex MS [address] [facility], [place], [address] , [place] [facility] 5 19:40:35 Low back pain 627256923 Active 2024 Alexandre Roseserarex MS [address] [facility], [place], [address] , [place] [facility] 19:40:35 Somatic dysfunctio n of lower limb 657827431 Active 2024 Alexandre Harris DC [address] [facility], [place], [address] , [facility] access hospital 19:42:12 Problem Notes None recorded. Procedures Surgical History Date Name Laterality Status Provider Name and Address Organization Details Recorded Time 01/31/20 57042: Spinal manipulation, 3 to 4 regions completed Avery Rocky ERIK Santiago [address] [facility], [place], [address], Critical access hospital 01/30/2025 16:31:07 01/27/20 18818: Spinal manipulation, 3 to 4 regions completed Avery Hidalgo ERIK Santiago [address] [facility], [place], [address], Critical access hospital 01/26/2025 18:04:12 01/01/20 25 00081: Spinal manipulation, 3 to 4 regions completed Alexandre RoseserarexERIK [address] [facility], [place], [address], Critical access hospital 12/31/2024 19:42:30 12/27/19 25 75502: Spinal manipulation, 3 to 4 regions completed Avery Hidalgo ERIK Santiago [address] [facility], [place], [address], Critical access hospital 12/26/2024 18:08:40 12/24/19 25 15663: Spinal manipulation, 3 to 4 regions completed Alexandre RsoeserarexERIK [address] [facility], [place], [address], Critical access hospital 12/23/2024 18:46:26 12/13/19 25 41143: Spinal manipulation, 3 to 4 regions completed Alexandre Harris ERIK [address] [facility], [place], [address], Critical access hospital 12/16/2024 18:50:08 11/22/19 25 49943: Spinal manipulation, 3 to 4 regions completed Averyguillermina Santiago DC [address] [facility], [place], [address], Critical access hospital 11/21/2024 22:00:11 10/24/19 25 70278: Spinal manipulation, 3 to 4 regions completed Alexandre Harris DC [address] [facility], [place], [address], Critical access hospital 10/23/2024 19:41:42 10/24/19 25 39217: Non-spinal manipulation completed Alexandre Harris DC [address] [facility], [place], [address], Critical access hospital 10/23/2024 19:41:54 09/27/19 25 86991: Spinal manipulation, 3 to 4 regions completed Avery Santiago DC [address] [facility], [place], [address], Critical access hospital 09/26/2024 19:17:52 08/11/19 25 45954: Spinal manipulation, 3 to 4 regions completed Alexandre Harris DC [address] [facility], [place], [address], Critical access hospital 08/11/2024 18:53:02 08/01/19 25 95273: Spinal manipulation, 3 to 4 regions completed Avery Santiago DC [address] [facility], [place], [address], Critical access hospital 08/01/2024 15:40:14 07/25/19 25 21878: Spinal manipulation, 3 to 4 regions completed Avery Santiago DC [address] [facility], [place], [address], Critical access hospital 07/25/2024 17:58:55 06/27/20 24 19958: Spinal manipulation, 3 to 4 regions completed Avery Santiago DC [address] [facility], [place], [address], Critical access hospital 06/28/2024 00:16:24 06/27/20 24 81640: Mechanical Traction completed Avery Santiago DC [address] [facility], [place], [address], Critical access hospital 06/28/2024 00:13:17 06/27/20 24 98579: New patient E/M completed Avery Maciasm, DC [address] [facility], [place], [address], Critical access hospital 06/28/2024 00:13:17 06/27/20 24 41540: Established patient E/M completed Avery Maciasm, DC [address] [facility], [place], [address], Critical access hospital 06/28/2024 00:13:17 06/27/20 24 46125: Therapeutic activities (1:1) completed Avery Maciasm, DC [address] [facility], [place], [address], Critical access hospital 06/28/2024 00:13:17 06/27/20 24 75868: Therapeutic Exercise completed Avery Santiago, DC [address] [facility], [place], [address], Critical access hospital 06/28/2024 00:13:17 06/27/20 24 74829: Massage completed Avery Santiago, DC [address] [facility], [place], [address], Critical access hospital 06/28/2024 00:13:17 06/27/20 24 02977: Manual Therapy completed Avery Maciasm, DC [address] [facility], [place], [address], Critical access hospital 06/28/2024 00:13:17 06/27/20 24 33358: Electrical Stimulation; Attended completed Avery Santiago, DC [address] [facility], [place], [address], Critical access hospital 06/28/2024 00:13:17 06/27/20 24 44600: Spinal manipulation, 1 to 2 regions completed Avery Maciasm, DC [address] [facility], [place], [address], Critical access hospital 06/28/2024 00:13:17 Imaging Results None recorded. Procedure [...] SNOMED-CT Code Diagnosis ICD10 Code Diagnosis Note [id number] Avery Santiago DC [facility] & [address] [facility] [address] 06/27/2024 17:00:07 07/02/2024 16:14:05 Cervical radiculopathy 45243382 M54.12 Neck pain 01685249 M54.2 Muscle spa sm of cervical muscle of neck 0742459163 04 M62.838 Cervical s egmental dysfunction 629419456 M99.01 Thoracic s egmental dysfunction 644111391 M99.02 Degenerati on of cervical intervertebral disc 59006866 M50.30 [id number] Avery Santiago DC [facility] & [address] [facility] [address] 07/25/2024 17:19:27 07/25/2024 18:33:55 Cervical segmental dysfunction 954263381 M99.01 Thoracic s egmental dysfunction 641555099 M99.02 Myofascial pain syndrome of neck 236355537 M54.2 Somatic dy sfunction of pelvic region 648015278 M99.05 [id number] Avery Santiago DC [facility] & [address] [facility] [address] 08/01/2024 15:31:04 08/01/2024 16:14:43 Cervical segmental dysfunction 817984198 M99.01 Thoracic s egmental dysfunction 673430094 M99.02 Myofascial pain syndrome of neck 439231734 M54.2 Somatic dy sfunction of pelvic region 199930474 M99.05 [id number] Alexandre Harris DC [facility] & [address] [facility] [place] [address] 08/11/2024 17:56:20 08/11/2024 18:55:06 Lesion of lumbar spine 651821781 M99.01 Neck pain 22172237 M54.2 Thoracic s egmental dysfunction 822501392 M99.02 Lumbar seg mental dysfunction 533832356 M99.03 Cervical s egmental dysfunction 589549073 M99.01 [id number] Avery Santiago DC [facility] [address] [place] [address] 09/26/2024 17:38:10 10/02/2024 09:10:38 Lesion of lumbar spine 606074727 M99.01 Neck pain 98010258 M54.2 Thoracic s egmental dysfunction 065548805 M99.02 Lumbar seg mental dysfunction 828639439 M99.03 Cervical s egmental dysfunction 314589963 M99.01 [id number] Alexandre Harris DC [facility] & [address] [place] [address] 10/23/2024 18:12:53 10/31/2024 11:18:07 Lumbar segmental dysfunction 348003852 M99.03 Low back pain 796720919 M54.50 Somatic dy sfunction of sacral spine 479974991 M99.04 Thoracic s egmental dysfunction 797416892 M99.02 Somatic dy sfunction of lower limb 049719405 M99.06 [id number] Avery Santiago DC [facility] & [address] [place] [address] 11/21/2024 16:17:54 11/24/2024 10:51:16 Lesion of lumbar spine 718107254 M99.01 Neck pain 16379641 M54.2 Thoracic s egmental dysfunction 644172996 M99.02 Lumbar seg mental dysfunction 489503397 M99.03 Cervical s egmental dysfunction 414824220 M99.01 [id number] Avery Santiago DC [facility] & [address] [facility] [address] 12/12/2024 16:29:10 12/23/2024 17:15:26 Lesion of lumbar spine 455635405 M99.01 Neck pain 41278085 M54.2 Thoracic s egmental dysfunction 668759355 M99.02 Lumbar seg mental dysfunction 235675180 M99.03 Cervical s egmental dysfunction 387425572 M99.01 [id number] Alexandre Harris DC [facility] & [address] [facility] [address] 12/23/2024 17:49:34 12/25/2024 10:48:39 Lesion of lumbar spine 095116858 M99.01 Neck pain 35116711 M54.2 Thoracic s egmental dysfunction 873744974 M99.02 Lumbar seg mental dysfunction 550641140 M99.03 Cervical s egmental dysfunction 298778424 M99.01 [id number] Avery Santiago DC [facility] & [address] [facility] [address] 12/26/2024 17:45:35 12/26/2024 18:14:04 Lesion of lumbar spine 682975414 M99.01 Neck pain 01050607 M54.2 Thoracic s egmental dysfunction 602346670 M99.02 Lumbar seg mental dysfunction 840571173 M99.03 Cervical s egmental dysfunction 487822480 M99.01 [id number] Alexandre Harris DC [facility] & [address] [facility] [address] 12/31/2024 18:14:48 01/06/2025 17:32:07 Lesion of lumbar spine 158616732 M99.01 Neck pain 16107617 M54.2 Thoracic s egmental dysfunction 743019363 M99.02 Lumbar seg mental dysfunction 210127178 M99.03 Cervical s egmental dysfunction 874378863 M99.01 [id number] Avery Santiago DC [facility] & [address] [facility] [address] 01/26/2025 17:51:56 01/28/2025 14:41:33 Lesion of lumbar spine 425280252 M99.01 Neck pain 44696860 M54.2 Thoracic s egmental dysfunction 936241022 M99.02 Lumbar seg mental dysfunction 456242781 M99.03 Cervical s egmental dysfunction 544487934 M99.01 [id number] Avery Santiago DC [facility] [address] [facility] [place] [address] 01/30/2025 16:29:49 01/30/2025 16:34:01 Lesion of lumbar spine 629343924 M99.01 Neck pain 71955432 M54.2 Thoracic s egmental dysfunction 237801253 M99.02 Lumbar seg mental dysfunction 504187831 M99.03 Cervical s egmental dysfunction 174439396 M99.01 Health Concerns Section Related Observation LastModified by Organization Detai ls LastModified Time None Recorded Concern Status LastModified by Organization Details LastModified Time None Recorded Advance Directives Directive None Recorded Payers Insurance Date Sequence Insurance Name Policy Number Policy Barrett Covered Member ID Barrett Member ID Guarantor Name 07/25/2024 1 *SELF PAY* Carine Medina 01/26/2025 1 [place] Chris Medina [id number] Lynn Medina Notes Date Note Type Note Provider Name and Address Organization Details Recorded Time 12/23/2024 text/html HPI - Cervical SpineReported bypatient.Location: left Quality:aching Severity:moderate Duration:2 weeks Timing:gradual Alleviating Factors:ice Aggravating Factors:sitting Associated Symptoms:no numbness/tingling Alexandre Harris DC [address] [facility], [place], [address], Critical access hospital 12/23/2024 18:46:59 12/26/2024 text/html HPI - Cervical SpineReported bypatient.Location: left Quality:aching Severity:moderate Duration:2 weeks Timing:gradual Alleviating Factors:ice Aggravating Factors:sitting Associated Symptoms:no numbness/tingling Avery Santiago DC [address] [facility], [place], [address], Critical access hospital 12/26/2024 18:11:15 12/31/2024 text/html HPI - Cervical SpineReported bypatient.Location: left Quality:aching Severity:moderate Duration:2 weeks Timing:gradual Alleviating Factors:ice Aggravating Factors:sitting Associated Symptoms:no numbness/tingling Alexandre Harris, ERIK [address] [facility], [place], [address], Critical access hospital 12/31/2024 19:43:03 01/26/2025 text/html HPI - Cervical SpineReported bypatient.Location: left Quality:aching Severity:moderate Duration:2 weeks Timing:gradual Alleviating Factors:ice Aggravating Factors:sitting Associated Symptoms:no numbness/tingling Avery Rocky Santiago, ERIK [address] [facility], [place], [address], Critical access hospital 01/26/2025 18:04:47 01/30/2025 text/html HPI - Cervical SpineReported bypatient.Location: left Quality:aching Severity:moderate Duration:2 weeks Timing:gradual Alleviating Factors:ice Aggravating Factors:sitting Associated Symptoms:no numbness/tingling Avery Hidalgo Jack, ERIK [address] [facility], [place], [address], Critical access hospital 01/30/2025 16:32:00 OBGyn Episode No OBEpisode recorded.
[2025-02-12 22:00] VITALS: BP 118/79; PULSE 105; RESP 18; TEMP 36.9; O2SAT 96; BMI 32.1
--- NOTE | 2025-02-12 22:12 | ED_ITS ---
HPI - General Adult General Chief complaint: Weakness Stated complaint: light headed after eating Time Seen by Provider: 02/12/25 22:06 History of Present Illness HPI narrative: This 44-year-old female has had nonspecific symptoms over the past week and states that she has not felt like taking much food. Today she had some soup and then vomited afterwards. She comes in here wanting to feel better. Prior to this she states that she did have an upper respiratory infection that resulted in these current symptoms. She does not report any cough or other upper respiratory symptoms currently. She arrives here with normal vital signs but does have slight tachycardia. Related Data Previous Rx's ?Medication ?Instructions ?Recorded risankizumab-rzaa 150 mg/mL 150 mg subcut Q12W #1 mL 0 03/30/22 subcutaneous pen injector (Skyrizi) Allergies Allergy/AdvReac Type Severity Reaction Status Date / Time No Known Drug Allergies Allergy Verified 02/12/25 22:02 Review of Systems Status of ROS: Reports: 10 or more systems reviewed and unremarkable except as noted in History and below Narrative: Constitutional: No fevers, no weight gain or loss. Eyes: No discharge. No vision changes. HENT: No congestion, no sore throat, no ear pain. Cardiovascular: No chest pain, no palpitations. Respiratory: No shortness of breath, no wheezes, no cough. Gastrointestinal: No abdominal pain, no diarrhea. Nausea with 1 vomiting episode. Genitourinary: No dysuria, no hematuria. Musculoskeletal: Normal range of motion. Skin: No rashes, no pruritis. Neurological: No dizziness, weakness, sensory change, speech change. Endo/Heme/Allergies: No bruising or bleeding. No polydipsia. Pysch: no suicidality, no anxiety, no insomnia. All other systems reviewed and are negative. [facility] Medical History Psoriasis Psoriasis and similar disorder Social History Smoking Status: Never smoker Do you use any of these nicotine containing products: None How often do you have a drink containing alcohol: never How often do you have six or more drinks on one occasion: Never AUDIT-C Alcohol total score: 0 Non-prescribed substance use: denies use service: No Exam Narrative: Exam Narrative: Constitutional: Well-developed, well-nourished, no acute distress. HEENT: Normocephalic, atraumatic. Neck: Normal range of motion. Nontender. Supple. Heart: Regular. No murmurs. Normal rate. Intact distal pulses. Lungs: Clear to auscultation. No chest discomfort. No wheezes, rhonchi, or rales. Abdomen: Normal bowel sounds. Nontender. No rebound tenderness. Genitalia: Deferred. Back: No midline tenderness. Normal range of motion. Extremities: Normal range of motion. No injury. Skin: Intact. No rash. Warm. No erythema or pallor. Neurologic: No altered sensation. No weakness. Alert and oriented. Psychiatric: No suicidality. No anxiety or depression. No insomnia. Nursing notes and vitals signs are reviewed. Const: Vital Signs, click to edit/add: Vital Signs - 24 hr 02/12/25 22:00 Temperature 98.5 F Pulse Rate [Right Pulse Oximeter] 105 H Respiratory Rate 18 Blood Pressure [Ri ght Upper Arm] 118/79 Pulse Oximetry 96 Oxygen Delivery Me thod Room Air Course Vital Signs Vital signs: Initial Vital Signs Temperature 98.5 F 02/12/25 22:00 Temperature Source Temporal Artery Scan 02/12/25 22:00 Pulse Rate 105 H 02/12/25 22:00 Pulse Rhythm Regular 02/12/25 22:00 Pulse Strength 3+ Normal 02/12/25 22:00 Respiratory Rate 18 02/12/25 22:00 Blood Pressure 118/79 02/12/25 22:00 Blood Pressure Mean 92 02/12/25 22:00 Blood Pressure Position Sitting 02/12/25 22:00 Pulse Oximetry 96 02/12/25 22:00 Oxygen Delivery Method Room Air 02/12/25 22:00 Vital Signs Temperature 98.5 F 02/12/25 22:00 Pulse Rate 105 H 02/12/25 22:00 Respiratory Rate 18 02/12/25 22:00 Blood Pressure 118/79 02/12/25 22:00 Pulse Oximetry 96 02/12/25 22:00 Oxygen Delivery Method Room Air 02/12/25 22:00 Temperature 98.5 F 02/12/25 22:00 Pulse Rate 105 H 02/12/25 22:00 Respiratory Rate 18 02/12/25 22:00 Blood Pressure 118/79 02/12/25 22:00 Pulse Oximetry 96 02/12/25 22:00 Oxygen Delivery Method Room Air 02/12/25 22:00 Medications Administered Medications: Discontinued Medications Generic Name Dose Route Start Last Admin Trade Name Ricki PRN Reason Stop Dose Admin Dextrose/Sodium Chloride 1,000 mls @ 1,000 mls/hr 02/12/25 22:11 02/12/25 23:14 5 % Dextrose/0.45% Sod Chlor IV 02/12/25 23:10 Infused .Q1H ONE Infusion Ketorolac Tromethamine 15 mg 02/12/25 22:11 02/12/25 22:23 Ketorolac 30 Mg/Ml Inj IVP 02/12/25 22:12 15 mg ONCE ONE Administration Ondansetron HCl 4 mg 02/12/25 22:11 02/12/25 22:23 Ondansetron 2 Mg/Ml Inj IVP 02/12/25 22:12 4 mg ONCE ONE Administration Medical Decision Making MDM Narrative Medical decision making narrative: This patient comes in reporting nausea and vomiting and generalized malaise as described above. An IV was established where she did receive a L of D5 half- normal saline, Toradol 15 mg, and Zofran 4 mg. She states that she is feeling much better after receiving these treatments. She is okay to be discharged home. I advised her to increase her diet as tolerated. Discharge Plan Discharge Clinical Impression: Gastroenteritis Patient Disposition: Home, Self-Care Condition: Improved Additional Instructions: Take frequent fluids and increase diet otherwise as tolerated. Use [id number] medicines as needed and directed. Follow up with MD return if worsening. Prescriptions: No Action Skyrizi 150 mg/mL pen injector 150 mg subcut Q12W Qty: 1 0RF Follow Up/Referrals: Provider,Not a Local [Primary Care Provider, Family Practice] Stand Alone Forms: [employer] Info Instructions
[2025-02-12] MEDS: ONDANSETRON 2 MG/ML inj 4 MG IVP (22:23)
[2025-02-12] MEDS: 5 % DEXTROSE/0.45% SOD CHLOR 1,000 ML 1000 ML IV (23:09)
== END 2025-02-12 23:26 | disposition home or self-care (01) ==
PROVIDERS: Emergency Provider Emergency Medicine Emergency Medical Services
DX: K52.9 Noninfective gastroenteritis and colitis, unspecified (principal)
CPT/HCPCS: 96374; 96375; 99283; 99284; J1885; J2405; S5010